=== PATIENT | male | born 1955 | race Two or more races ===

== ENCOUNTER 2024-09-04 13:07 | Inpatient (IN) | payer OTHER ==
[~2024-09-04] VITALS: Ht 175.3 cm; Wt 101.2 kg
[2024-09-04 13:27] VITALS: PULSE 75; RESP 18; O2SAT 96
--- NOTE | 2024-09-04 14:01 | ECG ---
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
--- NOTE | 2024-09-04 14:02 | ED.PDOC ---
SOB-HPI HPI Comments 69 year old male brought in by nursing staff presents to the ED with chief complaint of syncope. Patient reports that he had been visiting his in the hospital when he started to experience SOB with associated sweats and a general feeling of lightheadedness. Patient relays that the the next thing he remembered was being wheeled over to the ED in a wheelchair. Nursing staff state patient had been found on the floor by nursing staff and was put on O2 prior to being taken to the ED. Patient notes he had a recent CABG performed on 07/25/24. Patient reports that his symptoms have been relieved since being placed on the O2. Patient relays that he had a similar episode of syncope in [place] after having his blood drawn. Patient denies any chest pain, cough, fever, chills, dizziness, or headache. Chief Complaint: Syncope Time Seen by MD: 13:56 Primary Care Provider: UNKNOWN Reviewed notes: Nurses Notes, Medications, Allergies Information Source: Patient Mode of Arrival: Wheelchair Severity: Moderate Timing: Hours Duration: Since onset Context: At Rest PE Risk Factors: None History of: None Prehospital treatment: None Modifying Factors: Nothing Past Medical History PAST MEDICAL HISTORY: CAD, DM, HTN Surgical History: CABG Surgical History (Other): Left knee replacement Family History Family History: Reviewed,noncontributory to illness Social History Smoker: Non-Smoker Alcohol: Denies ETOH Use Drugs: Denies Drug Use Lives In: Home Constitutional: reports: sweats; denies: chills, diaphoresis, fatigue, fever, malaise, weakness, others EENTM: denies: blurred vision, double vision, ear bleeding, ear discharge, ear drainage, ear pain, ear ringing, eye pain, eye redness, hearing loss, mouth pain, mouth swelling, nasal discharge, nose bleeding, nose congestion, nose pa in, photophobia, tearing, throat pain, throat swelling, voice changes, others Respiratory: reports: shortness of breath; denies: cough, hemoptysis, orthopnea, SOB at rest, SOB with excertion, stridor, wheezing, others Cardiovascular: reports: syncope; denies: chest pain, dizzy spells, diaphoresis, Dyspnea on exertion, edema, irregular heart beat, left arm pain, lightheadedness, palpitations, PND, others Gastrointestinal: denies: abdomen distended, abdominal pain, blood streaked bowels, constipated, diarrhea, dysphagia, difficulty swallowing, hematemesis, melena, nausea, poor appetite, poor fluid intake, rectal bleeding, rectal pain, vomiting, others Genitourinary: denies: burning, dysuria, flank pain, frequency, hematuria, incontinence, penile discharge, penile sore, pain, testicle pain, testicle swelling, urgency, others Neurological: denies: dizziness, fainting, headache, left sided numbness, left sided weakness, numbness, paresthesia, pre-existing deficit, right sided numbness, right sided weakness, seizure, speech problems, tingling, tremors, weakness, others Musculoskeletal: denies: back pain, gout, joint pain, joint swelling, muscle pain, muscle stiffness, neck pain, others Integumetry: denies: bruises, change in color, change in hair/nails, dryness, laceration, lesions, lumps, rash, wounds, others Allergic/Immunocompromised: denies: Difficulty Healing, Frequent Infections, Hives, Itching, others Hematologic/Lymphatic: denies: anemia, blood clots, easy bleeding, easy bruising, swollen glands, others Endocrine: denies: excessive hunger, excessive sweating, excessive thirst, excessive urination, flushing, intolerance to cold, intolerance to heat, unexplained weight gain, unexplained weight loss, others Psychiatric: denies: anxiety, bipolar disorder, depression, hopeless, panic disorder, schizophrenia, sleepless, suicidal, others All Other Systems: Reviewed and Negative Physical Exam General Appearance: No Apparent Distress HEENT: PERRL/EOMI Neck: Full Range of Motion, Normal Inspection Respiratory: Lungs Clear, No Accessory Muscle Use, No Respiratory Distress, Normal Breath Sounds Cardiovascular: No Edema, No JVD, Regular Rate/Rhythm Breast Exam: Deferred Gastrointestinal: Non Tender, Soft Genitalia: Deferred Pelvic: Deferred Rectal: Deferred Extremities: Normal inspection, Normal range of motion, Non-tender, No pedal edema Neurologic: Alert (Oriented x4), Normal Affect, Normal Mood, Other (Moves all extremities. No gross focal deficit.) Cerebellar Function: NOT DONE Reflexes: NOT DONE Skin: Dry, Normal Color, Warm Lymphatic: NOT DONE EKG EKG : Comments Sinus rhythm, rate 75, HI slightly prolonged at 2:03 a.m., normal QRS interval, QTC prolonged at 5:30 a.m., incomplete right bundle-branch block and left anterior fascicular block, inferior and lateral T-wave inversion Was a procedure done? Was a procedure done?: No Differential Dx Differential Diagnosis: Dysrhythmia, Myocardial infarction, Panic Attack, Pulmonary Embolism, Other (Vasovagal syncope, CVA, TIA) X-Ray, Labs, Meds, VS Vital Signs Date Time Temp Pulse Resp B/P (MAP) Pulse Ox O2 Delivery O2 Flow Rate FiO2 09/04/24 16:00 78 15 146/93 (110) 97 09/04/24 14:00 79 15 121/79 (93) 97 09/04/24 13:32 75 09/04/24 13:27 75 18 96 Nasal Cannula* 2 28 09/04/24 13:22 97.8 76 15 161/98 (119) 95 97.8 09/04/24 13:07 97.9 108 16 140/87 (104) 96 Lab Test 09/04/24 16:15 09/04/24 14:48 09/04/24 13:12 Range/Units Troponin I High Sensitivity Pending 502 *H 532 *H </=54 ng/L White Blood Count 12.0 H 4.4-10.8 10^3/uL Red Blood Count 4.87 4.5-5.90 10^6/uL Hemoglobin 13.8 13.5-17.5 g/dL Hematocrit 42.2 41.0-53.0 % Mean Corpuscular Volume 86.5 80.0-100.0 fL Mean Corpuscular Hemoglobin 28.3 28.0-32.0 pg Mean Corpuscular Hemoglobin Concent 32.8 32.0-36.0 g/dL Red Cell Distribution Width 15.6 H 11.8-14.3 % Platelet Count 324 140-450 10^3/uL Mean Platelet Volume 9.8 6.9-10.8 fL Neutrophils (%) (Auto) 70.0 37.0-80.0 % Lymphocytes (%) (Auto) 17.0 10.0-50.0 % Monocytes (%) (Auto) 8.4 0.0-12.0 % Eosinophils (%) (Auto) 3.7 0.0-7.0 % Basophils (%) (Auto) 0.9 0.0-2.0 % Neutrophils # (Auto) 8.4 1.6-8.6 10 ^3/uL Lymphocytes # (Auto) 2.0 0.4-5.4 10 ^3/uL Monocytes # (Auto) 1.0 0-1.3 10 ^3/uL Eosinophils # (Auto) 0.4 0-0.8 10 ^3/uL Basophils # (Auto) 0.1 0-0.2 10 ^3/uL Nucleated Red Blood Cells 0.2 % Sodium Level 143 136-145 mmol/L Potassium Level 4.4 3.5-5.1 mmol/L Chloride Level 108 H 98-107 mmol/L Carbon Dioxide Level 25 20-31 mmol/L Anion Gap 10 5-15 Blood Urea Nitrogen 16 9-23 mg/dL Creatinine 0.97 0.700-1.30 mg/dL Glomerular Filtration Rate Calc 83 >90 mL/min BUN/Creatinine Ratio 16.5 10.0-20.0 Serum Glucose 173 H 74-106 mg/dL Calcium Level 10.0 8.7-10.4 mg/dL Total Bilirubin 0.6 0.2-1.0 mg/dL Aspartate Amino Transferase (AST) 26 13-40 U/L Alanine Aminotransferase (ALT) 25 7-40 U/L Alkaline Phosphatase 116 46-116 U/L B-Type Natriuretic Peptide 391.95 0-100 pg/mL Total Protein 6.3 5.7-8.2 g/dL Albumin 4.1 3.2-4.8 g/dL Current Medications Medications (Trade) Dose Ordered Sig/Raymundo Route Start Time Stop Time Status Last Admin Sodium Chloride 1,000 ml @ 1,000 mls/hr Q1H ONCE IV 09/04/24 14:00 09/04/24 14:59 DC 09/04/24 14:22 PROCEDURE(s): HWOCT - HEAD WITHOUT CONTRAST REASON: syncope ORDER NUMBER(s): [id number], ACCESSION NUMBER(s): [id number] EXAM: CT HEAD WITHOUT CONTRAST INDICATION: syncope TECHNIQUE: CT of the head without intravenous contrast. Radiation dose : 1. Head: CT Dose: CTDI volume is 58 mGy. Dose-length product is 1047 mGy*cm The dose indicators for CT are the volume computed tomography (CT) dose index (CTDIv 58 ol) and the dose length product ( 1047 DLP), and are measured in units of mGy and mGy-cm, respectively. These indicators are not patient dose, but values generated from the CT scanner acquisition factors. The report includes radiation exposure data for exposures received during this examination. COMPARISON: None FINDINGS: There is no evidence of acute intracranial hemorrhage, extra-axial collection, mass effect, midline shift, herniation or hydrocephalus. The ventricles, sulci and cisterns are age appropriate. The rhodes-white differentiation is intact. Patchy periventricular and subcortical white matter hypoattenuation is nonspecific but may be related to small vessel ischemic disease. The visualized paranasal sinuses and mastoid air cells are clear. The surrounding soft tissues and osseous structures are unremarkable. IMPRESSION: 1. Moderate diffuse cortical atrophy 2. No subdural hematoma 3. No intracranial hemorrhage. Radiation optimization: All CT scans at this facility use at least one of these dose optimization techniques: Automated exposure control mA and/or kV adjustment per patient size (includes targeted exams where dose is matched to clinical indication) or iterative reconstruction. EDURE(s): CXRP - CHEST PORTABLE REASON: syncope ORDER NUMBER(s): [id number], ACCESSION NUMBER(s): [id number] CHEST RADIOGRAPH Indication: syncope Technique: Single frontal view of the chest was obtained COMPARISON: None FINDINGS: Lines and Tubes: None Lungs: Congestion, [id number]. Pleura: No effusion. No pneumothorax. Cardiomediastinal contours: Cardiomegaly Bones: Unremarkable IMPRESSION: Congestion, [id number]. X-Ray, Labs, Meds, VS Comment 69-year-old male with a history of diabetes, hypertension, CAD presenting with syncope preceded by shortness of breath Initial vitals remarkable for heart rate 108 Exam unremarkable EKG sinus rhythm, prolonged intervals, right bundle branch block and left anterior fascicular block, inferior and lateral T inversion CT head moderate diffuse cortical atrophy Chest x-ray congestion, left greater than right Labs remarkable for WBC 12, BNP 391.95, serial troponins 532, 502, and for 31 Patient treated with the following in the ED: 1 L 0.9 normal saline IV bolus initially, then Aspirin 325 mg p.o. and Lasix 40 mg IV On re-evaluation, patient states he is not short of breath on nasal cannula oxygen and is not complaining of chest pain. Plan is to admit the patient for Cardiology evaluation. Time of 1ST Reevaluation: 14:56 Reevaluation 1ST: Unchanged Patient Education/Counseling: Diagnosis, Treatment Family Education/Counseling: No Family Present Departure 1 Departure Time of Disposition: 16:53 Impression: Primary Impression: Syncope Qualified Codes: R55 - Syncope and collapse Additional Impressions: Elevated troponin Acute exacerbation of chronic heart failure Disposition: ADMITTED INPATIENT Admit to: Tele Condition: Guarded Critical Care Note Critical Care Time?: No Stability Stability form required: No Heart Score Heart Score: Heart Score Response (Comments) Value History Moderate Suspicious [address]-Deviation 2 Age >65 2 Risk Factors 1 or 2 risk factors 1 Troponin >3 x's Normal limit 2 Total 8 I personally scribed for CHARLOTTE GALE MD ([email or web address]) on 09/04/24 at 14:02. Electronically submitted by Feng Dumont ([email or web address]). CHARLOTTE GALE MD Sep 04, 2024 14:02
[2024-09-04 14:21] LABS: Basophils # (auto) 0.1 10 ^3/uL (0-0.2); Basophils % (auto) 0.9 % (0.0-2.0); Eosinophils # (auto) 0.4 10 ^3/uL (0-0.8); Eosinophils % (auto) 3.7 % (0.0-7.0); Hematocrit 42.2 % (41.0-53.0); Hemoglobin 13.8 g/dL (13.5-17.5); Mean Corpuscular Hemoglobin 28.3 pg (28.0-32.0); Mean Corpuscular Hgb Conc. 32.8 g/dL (32.0-36.0); Mean Corpuscular Volume 86.5 fL (80.0-100.0); Monocytes % (auto) 8.4 % (0.0-12.0); Neutrophils # (auto) 8.4 10 ^3/uL (1.6-8.6); Nucleated Red Blood Cells % 0.2 %; Platelet Count (auto) 324 10^3/uL (140-450); Red Blood Cells 4.87 10^6/uL (4.5-5.90); Red Cell Distribution Width 15.6 % (11.8-14.3)
[2024-09-04] MEDS: SODIUM CHLORIDE 0.9% 1,000 ML IV ONE (14:22)
--- NOTE | 2024-09-04 14:28 | DVH ---
CHEST RADIOGRAPH Indication: syncope Technique: Single frontal view of the chest was obtained COMPARISON: None FINDINGS: Lines and Tubes: None Lungs: Congestion, [id number]-right. Pleura: No effusion. No pneumothorax. Cardiomediastinal contours: Cardiomegaly Bones: Unremarkable IMPRESSION: Congestion, [id number]-right.
--- NOTE | 2024-09-04 14:34 | DVH ---
EXAM: CT HEAD WITHOUT CONTRAST INDICATION: syncope TECHNIQUE: CT of the head without intravenous contrast. Radiation dose : 1. Head: CT Dose: CTDI volume is 58 mGy. Dose-length product is 1047 mGy*cm The dose indicators for CT are the volume computed tomography (CT) dose index (CTDIv 58 ol) and the d ose length product ( 1047 DLP), and are measured in units of mGy and mGy-cm, respectively. These balbir cators are not patient dose, but values generated from the CT scanner acquisition factors. The report includes radiation exposure data for exposures received during this examination. COMPARISON: None FINDINGS: There is no evidence of acute intracranial hemorrhage, extra-axial collection, mass effect, midline s hift, herniation or hydrocephalus. The ventricles, sulci and cisterns are age appropriate. The rhodes-white differentiation is intact. Patchy periventricular and subcortical white matter hypoattenuation is nonspecific but may be related to small vessel ischemic disease. The visualized paranasal sinuses and mastoid air cells are clear. The surrounding soft tissues and osseous structures are unremarkable. IMPRESSION: 1. Moderate diffuse cortical atrophy 2. No subdural hematoma 3. No intracranial hemorrhage. Radiation optimization: All CT scans at this facility use at least one of these dose optimization saray hniques: Automated exposure control mA and/or kV adjustment per patient size (includes targeted exams where dose is matched to clinical indication) or iterative reconstruction.
[2024-09-04 14:35] LABS: Alanine Aminotransferase 25 U/L (7-40); Albumin 4.1 g/dL (3.2-4.8); Anion Gap 10 (5-15); Aspartate Aminotransferase 26 U/L (13-40); BUN/Creatinine Ratio 16.5 (10.0-20.0); Bilirubin, Total 0.6 mg/dL (0.2-1.0); Blood Urea Nitrogen 16 mg/dL (9-23); Carbon Dioxide 25 mmol/L (20-31); Potassium 4.4 mmol/L (3.5-5.1); Sodium 143 mmol/L (136-145); Total Protein 6.3 g/dL (5.7-8.2)
[2024-09-04 14:37] LABS: Alkaline Phosphatase 116 U/L (46-116); Chloride 108 mmol/L (98-107); Glucose 173 mg/dL (74-106)
[2024-09-04] MEDS: ASPirin 325 MG TAB PO ONE (16:51)
[2024-09-04] MEDS: FUROSEMIDE 40 MG/4 ML VIAL IV ONE (18:07)
[2024-09-04 20:56] VITALS: PULSE 72; RESP 12; O2SAT 95
[2024-09-04 21:09] LABS: Urine Bacteria None Seen /hpf (None Seen); Urine WBC None Seen /hpf (0 - 3)
--- NOTE | 2024-09-04 21:11 | DVHHPRES ---
History of Present Illness Resident Creating Document: MADIHA GOODMAN RESIDENT History of Present Illness Patient is 69-year-old male with past medical history of hypertension, diabetes mellitus, coronary artery disease and recent history of CABG(one month ago) who came to the hospital with a chief complaint of syncopal episode. As per patient , he started having worsening shortness of breath, palpitation associated with feeling of lightheadedness associated with syncopal episode where he passed out for at least 2-3 minutes. And then he remembered being in the hospital for ev aluation. At the time of evaluation, patient denying any other symptoms including chest pain, lightheadedness, fever, chills, shortness of breath, palpitation, motor weakness, sensory deficits. No any other new complaints. Past Medical History Coronary artery disease, diabetes mellitus, coronary artery disease Past Surgical History Recent history of CABG on July 2024 Smoke: No ALCOHOL: none Lives: with Family Domestic Violence: Neg Review of Systems Constitutional: No: Fever, Chills, Sweats, Weakness, Malaise, Other Eyes: No: Pain, Vision change, Conjunctivae inflammation, Eyelid inflammation, Other, Redness ENT: No: Ear pain, Ear discharge, Nose pain, Nose discharge, Nose congestion, Mouth pain, Mouth swelling, Throat pain, Throat swelling, Other Respiratory: No: Cough, Dry, Shortness of breath, SOB with excertion, Wheezing, Hemoptysis, Pleuritic Pain, Sputum, Wheezing, Other Cardiovascular: No: Chest Pain, Palpitations, Orthopnea, Paroxysmal Noc. Dyspnea, Edema, Lt Headedness, Other Gastrointestinal: No: Nausea, Vomiting, Abdominal Pain, Diarrhea, Constipation, Melena, Hematochezia, Other Genitourinary: No Dysuria, No Frequency, No Incontinence, No Hematuria, No Retention, No Other Musculoskeletal: No: other, neck pain, shoulder pain, arm pain, back pain, hand pain, leg pain, foot pain Skin: No: Rash, Lesions, Jaundice, Bruising, Other Neurological: No: Weakness, Numbness, Incoordination, Change in speech, Confusion, Seizures, Other Allergies: Coded Allergies: NO KNOWN ALLERGIES (Unverified , 09/04/24) Exam Vital Signs Vital Signs Date Time Temp Pulse Resp B/P (MAP) Pulse Ox O2 Delivery O2 Flow Rate FiO2 09/04/24 20:56 72 12 95 Nasal Cannula* 2 28 09/04/24 19:48 98.4 147/79 (101) 98.4 General Appearance: Alert HEENT: PERRLA Respiratory: Normal air movement, Other (Left-sided lung crackles.) Cardiovascular: Normal S1, Normal S2 Abdominal: Normal bowel sounds, Soft Extremities: No cyanosis, No edema Skin: No rashes, No breakdown Neuro: Normal gait, Normal speech Psych/Mental Status: Mood NL Labs/Xrays Labs Test 09/04/24 21:02 09/04/24 16:15 09/04/24 13:12 Range/Units Troponin I High Sensitivity 431 *H </=54 ng/L White Blood Count 12.0 H 4.4-10.8 10^3/uL Red Blood Count 4.87 4.5-5.90 10^6/uL Hemoglobin 13.8 13.5-17.5 g/dL Hematocrit 42.2 41.0-53.0 % Mean Corpuscular Volume 86.5 80.0-100.0 fL Mean Corpuscular Hemoglobin 28.3 28.0-32.0 pg Mean Corpuscular Hemoglobin Concent 32.8 32.0-36.0 g/dL Red Cell Distribution Width 15.6 H 11.8-14.3 % Platelet Count 324 140-450 10^3/uL Mean Platelet Volume 9.8 6.9-10.8 fL Neutrophils (%) (Auto) 70.0 37.0-80.0 % Lymphocytes (%) (Auto) 17.0 10.0-50.0 % Monocytes (%) (Auto) 8.4 0.0-12.0 % Eosinophils (%) (Auto) 3.7 0.0-7.0 % Basophils (%) (Auto) 0.9 0.0-2.0 % Neutrophils # (Auto) 8.4 1.6-8.6 10 ^3/uL Lymphocytes # (Auto) 2.0 0.4-5.4 10 ^3/uL Monocytes # (Auto) 1.0 0-1.3 10 ^3/uL Eosinophils # (Auto) 0.4 0-0.8 10 ^3/uL Basophils # (Auto) 0.1 0-0.2 10 ^3/uL Nucleated Red Blood Cells 0.2 % Sodium Level 143 136-145 mmol/L Potassium Level 4.4 3.5-5.1 mmol/L Chloride Level 108 H 98-107 mmol/L Carbon Dioxide Level 25 20-31 mmol/L Anion Gap 10 5-15 Blood Urea Nitrogen 16 9-23 mg/dL Creatinine 0.97 0.700-1.30 mg/dL Glomerular Filtration Rate Calc 83 >90 mL/min BUN/Creatinine Ratio 16.5 10.0-20.0 Serum Glucose 173 H 74-106 mg/dL Calcium Level 10.0 8.7-10.4 mg/dL Total Bilirubin 0.6 0.2-1.0 mg/dL Aspartate Amino Transferase (AST) 26 13-40 U/L Alanine Aminotransferase (ALT) 25 7-40 U/L Alkaline Phosphatase 116 46-116 U/L B-Type Natriuretic Peptide 391.95 0-100 pg/mL Total Protein 6.3 5.7-8.2 g/dL Albumin 4.1 3.2-4.8 g/dL Assessment/Plan Assessment/Plan Acute on chronic systolic versus diastolic Heart Failure NSTEMI type 2 likely due to above Syncopal episode, rule out etiology including orthostatic hypotension, cardiogenic etiology, coronary artery stenosis, neurological etiology. Pneumonia can not be ruled out, Gram-positive versus Gram-negative. Diabetes mellitus type 2 Hypertension Status post CABG(July) Plan: Cardiovascular: -Aspirin 325 mg p.o. daily, atorvastatin 80 mg p.o. daily. -Furosemide (Lasix) 40 mg IV b.i.d. -Monitor magnesium and potassium levels -Monitor urine output -cardiology consultation Syncope Evaluation: -Carotid study negative for significant carotid stenosis -Pending echocardiogram and orthostasis evaluation -head CT: No acute intracranial abnormality -carotid Doppler: No evidence of hemodynamically significant stenosis bilateral carotid stenosis. Diabetes: -Insulin sliding scale Infection: -Given elevated white count, sputum production, and recent sick contacts, early pneumonia cannot be ruled out -Administer ceftriaxone and azithromycin Antihypertensive Management: -Hold antihypertensive medications due to hypotension after receiving lower dose of Coreg and lisinopril 10 mg -Continue monitoring blood pressure Goals of care discussed greater than 22 minutes, full code. Plan discussed with Dr. Avila. Plan discussed with: Patient, Other (RN) My Orders Orders - MADIHA GOODMAN RESIDENT Procedure Category Date Status Time Lisinopril Tablet PHA 09/04/24 Transmitted (Zestril Tablet) 21:15 Lisinopril Tablet PHA 09/05/24 Transmitted (Zestril Tablet) 10:00 Aspirin Tablet PHA 09/05/24 Transmitted 10:00 Furosemide Injection PHA 09/05/24 Transmitted (Lasix Injection) 06:00 Atorvastatin (Lipitor) PHA 09/04/24 Transmitted 21:15 Atorvastatin (Lipitor) PHA 09/04/24 Transmitted 22:00 Carvedilol Tablet PHA 09/04/24 Transmitted (Coreg Tablet) 22:00 Carotid Duplx W Color US 09/04/24 Transmitted DOP 21:01 Echo 2d Mode Cardiac US 09/04/24 Transmitted DOP 21:01 * Cardiology Consult CONS 09/04/24 Transmitted 21:01 Glucose Blood PHA 09/04/24 Transmitted (Accu-Chek Comfort 22:00 Bedtime Insulin Scale PHA 09/04/24 Transmitted 22:00 Moderate Insulin Ss PHA 09/05/24 Transmitted 07:00 Dextrose 50% Syringe PHA 09/04/24 Transmitted 21:15 Covid19 Antigen I[facility]ra LAB 09/04/24 Transmitted Rapid Influenza A&B LAB 09/04/24 Transmitted 21:01 Ceftriaxone Ivpb PHA 09/05/24 Transmitted Rocephin 09:00 Ceftriaxone Ivpb PHA 09/04/24 Transmitted Rocephin 21:15 Azithromycin 500mg/ PHA 09/05/24 Transmitted 250ml (Zithromax 50 10:00 Azithromycin 500mg/ PHA 09/04/24 Transmitted 250ml (Zithromax 50 21:15 Urinalysis LAB 09/04/24 Transmitted 21:01 Drug Screen LAB 09/04/24 Transmitted 21:01 Admit ADMIT 09/04/24 Transmitted 21:01 Nitroglycerin PHA 09/04/24 Verified Sublingual (Ntrostat 21:15 Morphine Sulfate PHA 09/04/24 Verified Injection 21:15 Oxygen By Nasal RT 09/04/24 Verified Cannula 21:01 Stat Ekg For Chest [facility] 09/04/24 Verified Pain 21:01 Notify Of Changes [facility] 09/04/24 Verified From Base 21:01 Pharmaceutical Analyst For [facility] 09/04/24 Verified 24 Hours 21:01 Emergency Dysrhythmia [facility] 09/04/24 Verified Protocol 21:01 Rhythm Strips Once [facility] 09/04/24 Verified Every Shift 21:01 Date of Service: Sep 04, 2024 Billing Provider: ALISSON AVILA MD Common Visit Codes: [id number] INP/OBS CARE (HIGH) Secondary Visit Codes: [id number] CARE PLAN 30 MINUTES MADIHA GOODMAN RESIDENT Sep 04, 2024 21:11 ALISSON AVILA MD Sep 05, 2024 17:17
[2024-09-04] MEDS ORDERED: MORPHINE SULFATE INJ 2 MG/ml SYRG IV PRN (21:15)
[2024-09-04] MEDS ORDERED: DEXTROSE (50%) 50ML SYRG IV PRN (21:15)
[2024-09-04] MEDS: AZITHROMYCIN 500MG/ 250ML 250 ML IV ONE (21:15)
[2024-09-04] MEDS ORDERED: NITROGLYCERIN 0.4 MG SL TAB SL PRN (21:15)
[2024-09-04 21:20] LABS: Urine Blood Negative /uL (Negative); Urine Clarity Clear (Clear); Urine Color Light-Yellow (Yellow); Urine Protein, UAD Negative (Negative); Urine Squamous Epithelial Cell FEW /hpf (<5); Urine Urobilinogen Normal (Negative); Urine pH 5.5 (5.0-9.0)
[2024-09-04] MEDS: cefTRIAXone 1GM/50ML D5W 50 ML IV ONE (21:34)
--- NOTE | 2024-09-04 21:57 | DVH ---
CAROTID DOPPLER ULTRASOUND HISTORY: syncope COMPARISON: None TECHNIQUE: Real time rhodes scale, color Doppler, and spectral duplex images are obtained through the c arotid and vertebral arteries. Findings: Peak systolic velocity right internal carotid artery is 82 cm/s and right common carotid artery is 84 cm/s. Ratio is 1.0. Antegrade flow noted in right vertebral artery. No significant atherosclerotic p laque noted within the right carotid arterial system. Peak systolic velocity left internal carotid artery is 93 cm/s and left common carotid artery is 74 c m/s. Ratio is 1.2. Antegrade flow noted in left vertebral artery. No significant atherosclerotic plaq ue noted within the left carotid arterial system. Impression: 1. No evidence of hemodynamically significant stenosis within the bilateral carotid arterial systems. 2. Antegrade flow within bilateral vertebral arteries. Stenosis ICA/CCA PSV ratio PSV 0-40% < 1.5 25-110 cm/s 40-59% < 1.8 > 120 cm/s 60-79% 1.8-3.7 > 130 cm/s 80-99% > 3.7 < 25 cm/s, > 250 cm/s
[2024-09-04] MEDS: ATORVASTATIN 20 MG TAB PO SCH (22:00)
[2024-09-04 22:05] LABS: Amphetamine Screen, Urine Neg (NEGATIVE); Barbiturate Scree,Urine Neg (NEGATIVE); Benzodiazephine Screen, Urine Neg (NEGATIVE); Cannabinoid Screen, Urine Neg (NEGATIVE); Cocaine Screen, Urine Neg (NEGATIVE); Opiate Scree,Urine Neg (NEGATIVE); Phencyclidine Screen, Urine Neg (NEGATIVE)
[2024-09-04] MEDS: ATORVASTATIN 20 MG TAB PO ONE (22:20)
[2024-09-04] MEDS: CARVEDILOL 3.125 MG TAB PO SCH (22:21)
[2024-09-04 22:25] LABS: COVID19 ANTIGEN SOFIA FIA NEGATIVE (NEGATIVE); Rapid Influenza A Negative (Negative); Rapid Influenza B Negative (Negative)
[2024-09-04] MEDS: ACCU-CHEK COMFORT CURVE STRIP VI SCH (22:30)
[2024-09-04] MEDS: LISINOPRIL 5 MG TAB PO ONE (22:34)
[2024-09-04] MEDS: InsuLIN REG 1unit/0.01ml Soln (100units/ml) SC SCH (22:41)
[2024-09-05] VITALS (8 sets, daily range): BP systolic 108–140; BP diastolic 60–85; PULSE 63–98; RESP 16–21; TEMP 97.5–98.6; O2SAT 88–99
[2024-09-05] MEDS: FUROSEMIDE 40 MG/4 ML VIAL IV SCH (06:00)
[2024-09-05] MEDS: InsuLIN REG 1unit/0.01ml Soln (100units/ml) SC SCH (06:39)
[2024-09-05] MEDS: cefTRIAXone 1GM/50ML D5W 50 ML IV SCH (08:53)
[2024-09-05] MEDS: ASPirin 81 mg TAB PO SCH (09:05)
[2024-09-05] MEDS: AZITHROMYCIN 500MG/ 250ML 250 ML IV SCH (10:00)
[2024-09-05] MEDS ORDERED: LISINOPRIL 5 MG TAB PO SCH (10:00)
--- NOTE | 2024-09-05 10:54 | DVHINCON2 ---
Date Seen: Sep 05, 2024 Reason for Consultation Help in the management of a patient with syncope History of Present Illness Patient is a 69-year-old gentleman known to have history significant for coronary artery disease status post recent CABG done in July of 2024, hypertension, hyperlipidemia, and diabetes mellitus type 2. He was brought to the emergency room yesterday after he sustained a syncopal spell. Patient recalls that he was sitting visiting his and and suddenly started feeling lightheaded and sweaty. He does not recall the events after that. It was reported that he was out only for a minute or 2. Patient denied having any other associated symptoms. He specifically denied having any preceding chest pain or chest tightness. No preceding shortness of breath. No palpitations. He does report that he does experience a syncopal episode every year or 2. He does report that after his recent CABG he was experiencing chest pain but this resolved after he was put on a medication by his environmental engineering assistant at [facility]. Since then he has not experienced any recurrent chest pain. He does do regular walking. No strenuous activity that he does. No recent problems with orthopnea or PNDs. No peripheral edema. No bleeding problems. He reports being compliant his medications. Past Medical History He reports having CABG 1 vessel done at [facility] July of 2024. He also reports having a clip done at the same time probably AtriClip. No records are available at this point. Diabetes mellitus type. Hypertension. Hyperlipidemia. Past Surgical History Recent CABG as above Family History: FH: cancer G8 MOTHER, Allergies: Coded Allergies: NO KNOWN ALLERGIES (Unverified , 09/04/24) Current Medications Current Medications Medications (Trade) Dose Ordered Sig/Raymundo Route PRN Reason Start Time Stop Time Status Last Admin Lisinopril (Zestril Tablet) 10 mg DAILY PO 09/05/24 10:00 09/05/24 05:16 DC Aspirin 81 mg DAILY PO 09/05/24 10:00 09/05/24 09:05 Furosemide (Lasix Injection) 40 mg BIDD IV 09/05/24 06:00 09/05/24 06:00 Atorvastatin Calcium (Lipitor) 80 mg HS PO 09/04/24 22:00 Carvedilol (Coreg Tablet) 6.25 mg Q12HR PO 09/04/24 22:00 09/05/24 05:16 DC 09/04/24 22:21 Diagnostic Test (Pha) (Accu-Chek Comfort Curve T) 1 strip ACHS 09/04/24 22:00 09/05/24 06:35 Insulin Human Regular (InsuLIN R) HS SC 09/04/24 22:00 09/04/24 22:41 Insulin Human Regular (InsuLIN R) AC SC 09/05/24 07:00 09/05/24 06:39 Dextrose 50 ml UD PRN IV Blood Sugar LESS THAN 60 09/04/24 21:15 Ceftriaxone Sodium 50 ml @ 100 mls/hr DAILY@09 IV 09/05/24 09:00 09/05/24 08:53 Azithromycin 250 ml @ 125 mls/hr DAILY IV 09/05/24 10:00 Nitroglycerin (Ntrostat Sublingual) 0.4 mg Q5MINP PRN SL FOR CHEST PAIN 09/04/24 21:15 Morphine Sulfate 2 mg Q30M PRN IV FOR CHEST PAIN 09/04/24 21:15 Review of Systems As above, otherwise negative. Vital Signs Vital Signs Date Time Temp Pulse Resp B/P (MAP) Pulse Ox O2 Delivery O2 Flow Rate FiO2 09/05/24 08:39 97.6 72 17 108/72 (84) 92 97.6 09/05/24 04:23 Nasal Cannula* 3 32 Physical Exam Patient is not in acute distress. Heart sounds are normal with no audible murmurs. There is no JVD. The lungs are clear bilateral. Abdomen is soft and nontender. Extremities are warm with no edema. Neuro was grossly intact. Psych appropriate mood and affect, alert and oriented x3. Labs/Diagnostic Data Vital Signs Date Time Temp Pulse Resp B/P (MAP) Pulse Ox O2 Delivery O2 Flow Rate FiO2 09/05/24 08:39 97.6 72 17 108/72 (84) 92 97.6 09/05/24 06:00 122/65 09/05/24 04:23 Nasal Cannula* 3 32 09/05/24 04:23 98.6 64 21 115/71 (86) 94 98.6 09/05/24 03:00 63 11 111/48 (69) 98 09/05/24 02:00 55 14 113/55 (74) 98 09/05/24 01:52 98.3 75 16 136/85 (102) 99 98.3 09/05/24 00:57 58 13 97/55 (69) 96 09/05/24 00:40 66 12 87/48 (61) 87 09/05/24 00:40 62 09/05/24 00:00 67 09/04/24 23:30 85 14 97/55 (69) 93 09/04/24 23:24 85 91/41 09/04/24 22:34 124/78 09/04/24 22:22 77 13 124/78 (93) 94 09/04/24 22:21 67 124/78 09/04/24 22:00 98.4 77 13 124/78 (93) 94 98.4 09/04/24 21:17 98.4 72 12 147/79 (101) 95 98.4 09/04/24 20:56 72 12 95 Nasal Cannula* 2 28 09/04/24 20:00 83 09/04/24 19:48 98.4 72 12 147/79 (101) 95 98.4 09/04/24 18:07 148/76 09/04/24 18:00 78 15 122/93 (103) 97 09/04/24 16:00 78 15 146/93 (110) 97 09/04/24 14:00 79 15 121/79 (93) 97 09/04/24 13:32 75 09/04/24 13:27 75 18 96 Nasal Cannula* 2 28 09/04/24 13:22 97.8 76 15 161/98 (119) 95 97.8 09/04/24 13:07 97.9 108 16 140/87 (104) 96 Lab Test 09/05/24 06:33 09/04/24 21:29 09/04/24 21:02 09/04/24 16:15 Range/Units POC Glucose 151 H 70-106 mg/dl Influenza Type A Antigen Negative Negative Influenza Type B Antigen Negative Negative SARS-CoV-2 Antigen (Rapid) Negative NEGATIVE Urine Color Light-yellow Yellow Urine Clarity Clear Clear Urine pH 5.5 5.0-9.0 Urine Specific [place] 1.010 1.001-1.035 Urine Protein Negative Negative Urine Ketones Negative Negative Urine Blood Negative Negative /uL Urine Nitrite Negative Negative Urine Bilirubin Negative Negative Urine Urobilinogen Normal Negative mg/dL Urine Leukocyte Esterase Negative Negative /uL Urine RBC <1 0 - 3 /hpf Urine WBC None seen 0 - 3 /hpf Urine Squamous Epithelial Cells Few <5 /hpf Urine Bacteria None seen None Seen /hpf Urine Glucose Normal Normal mg/dL Urine Opiates Screen Neg NEGATIVE Urine Fentanyl Screen Neg NEGATIVE Urine Barbiturates Screen Neg NEGATIVE Urine Phencyclidine Screen Neg NEGATIVE Urine Amphetamines Screen Neg NEGATIVE Urine Benzodiazepines Screen Neg NEGATIVE Urine Cocaine Screen Neg NEGATIVE Urine Cannabinoids Screen Neg NEGATIVE Troponin I High Sensitivity 431 *H </=54 ng/L Test 09/04/24 14:48 09/04/24 13:12 Range/Units Troponin I High Sensitivity 502 *H 532 *H </=54 ng/L White Blood Count 12.0 H 4.4-10.8 10^3/uL Red Blood Count 4.87 4.5-5.90 10^6/uL Hemoglobin 13.8 13.5-17.5 g/dL Hematocrit 42.2 41.0-53.0 % Mean Corpuscular Volume 86.5 80.0-100.0 fL Mean Corpuscular Hemoglobin 28.3 28.0-32.0 pg Mean Corpuscular Hemoglobin Concent 32.8 32.0-36.0 g/dL Red Cell Distribution Width 15.6 H 11.8-14.3 % Platelet Count 324 140-450 10^3/uL Mean Platelet Volume 9.8 6.9-10.8 fL Neutrophils (%) (Auto) 70.0 37.0-80.0 % Lymphocytes (%) (Auto) 17.0 10.0-50.0 % Monocytes (%) (Auto) 8.4 0.0-12.0 % Eosinophils (%) (Auto) 3.7 0.0-7.0 % Basophils (%) (Auto) 0.9 0.0-2.0 % Neutrophils # (Auto) 8.4 1.6-8.6 10 ^3/uL Lymphocytes # (Auto) 2.0 0.4-5.4 10 ^3/uL Monocytes # (Auto) 1.0 0-1.3 10 ^3/uL Eosinophils # (Auto) 0.4 0-0.8 10 ^3/uL Basophils # (Auto) 0.1 0-0.2 10 ^3/uL Nucleated Red Blood Cells 0.2 % Sodium Level 143 136-145 mmol/L Potassium Level 4.4 3.5-5.1 mmol/L Chloride Level 108 H 98-107 mmol/L Carbon Dioxide Level 25 20-31 mmol/L Anion Gap 10 5-15 Blood Urea Nitrogen 16 9-23 mg/dL Creatinine 0.97 0.700-1.30 mg/dL Glomerular Filtration Rate Calc 83 >90 mL/min BUN/Creatinine Ratio 16.5 10.0-20.0 Serum Glucose 173 H 74-106 mg/dL Calcium Level 10.0 8.7-10.4 mg/dL Total Bilirubin 0.6 0.2-1.0 mg/dL Aspartate Amino Transferase (AST) 26 13-40 U/L Alanine Aminotransferase (ALT) 25 7-40 U/L Alkaline Phosphatase 116 46-116 U/L B-Type Natriuretic Peptide 391.95 0-100 pg/mL Total Protein 6.3 5.7-8.2 g/dL Albumin 4.1 3.2-4.8 g/dL Current Medications Medications (Trade) Dose Ordered Sig/Raymundo Route Start Time Stop Time Status Last Admin Sodium Chloride 1,000 ml @ 1,000 mls/hr Q1H ONCE IV 09/04/24 14:00 09/04/24 14:59 DC 09/04/24 14:22 Aspirin 325 mg ONCE ONCE PO 09/04/24 16:45 09/04/24 16:46 DC 09/04/24 16:51 Furosemide (Lasix Injection) 40 mg ONCE ONCE IV 09/04/24 17:00 09/04/24 17:28 DC 09/04/24 18:07 Lisinopril (Zestril Tablet) 10 mg ONCE ONCE PO 09/04/24 21:15 09/04/24 21:16 DC 09/04/24 22:34 Aspirin 81 mg DAILY PO 09/05/24 10:00 09/05/24 09:05 Furosemide (Lasix Injection) 40 mg BIDD IV 09/05/24 06:00 09/05/24 06:00 Atorvastatin Calcium (Lipitor) 80 mg ONCE ONCE PO 09/04/24 21:15 09/04/24 21:16 DC 09/04/24 22:20 Carvedilol (Coreg Tablet) 6.25 mg Q12HR PO 09/04/24 22:00 09/05/24 05:16 DC 09/04/24 22:21 Diagnostic Test (Pha) (Accu-Chek Comfort Curve T) 1 strip ACHS 09/04/24 22:00 09/05/24 06:35 Insulin Human Regular (InsuLIN R) HS SC 09/04/24 22:00 09/04/24 22:41 Insulin Human Regular (InsuLIN R) AC SC 09/05/24 07:00 09/05/24 06:39 Ceftriaxone Sodium 50 ml @ 100 mls/hr DAILY@09 IV 09/05/24 09:00 09/05/24 08:53 Ceftriaxone Sodium 50 ml @ 100 mls/hr ONCE ONCE IV 09/04/24 21:15 09/04/24 21:44 DC 09/04/24 21:34 Azithromycin 250 ml @ 125 mls/hr ONCE ONCE IV 09/04/24 21:15 09/04/24 23:14 DC 09/04/24 21:15 Labs Test 09/05/24 06:33 09/04/24 21:29 09/04/24 21:02 09/04/24 16:15 Range/Units POC Glucose 151 H 70-106 mg/dl Influenza Type A Antigen Negative Negative Influenza Type B Antigen Negative Negative SARS-CoV-2 Antigen (Rapid) Negative NEGATIVE Urine Color Light-yellow Yellow Urine Clarity Clear Clear Urine pH 5.5 5.0-9.0 Urine Specific [place] 1.010 1.001-1.035 Urine Protein Negative Negative Urine Ketones Negative Negative Urine Blood Negative Negative /uL Urine Nitrite Negative Negative Urine Bilirubin Negative Negative Urine Urobilinogen Normal Negative mg/dL Urine Leukocyte Esterase Negative Negative /uL Urine RBC <1 0 - 3 /hpf Urine WBC None seen 0 - 3 /hpf Urine Squamous Epithelial Cells Few <5 /hpf Urine Bacteria None seen None Seen /hpf Urine Glucose Normal Normal mg/dL Urine Opiates Screen Neg NEGATIVE Urine Fentanyl Screen Neg NEGATIVE Urine Barbiturates Screen Neg NEGATIVE Urine Phencyclidine Screen Neg NEGATIVE Urine Amphetamines Screen Neg NEGATIVE Urine Benzodiazepines Screen Neg NEGATIVE Urine Cocaine Screen Neg NEGATIVE Urine Cannabinoids Screen Neg NEGATIVE Troponin I High Sensitivity 431 *H </=54 ng/L Test 09/04/24 13:12 Range/Units White Blood Count 12.0 H 4.4-10.8 10^3/uL Red Blood Count 4.87 4.5-5.90 10^6/uL Hemoglobin 13.8 13.5-17.5 g/dL Hematocrit 42.2 41.0-53.0 % Mean Corpuscular Volume 86.5 80.0-100.0 fL Mean Corpuscular Hemoglobin 28.3 28.0-32.0 pg Mean Corpuscular Hemoglobin Concent 32.8 32.0-36.0 g/dL Red Cell Distribution Width 15.6 H 11.8-14.3 % Platelet Count 324 140-450 10^3/uL Mean Platelet Volume 9.8 6.9-10.8 fL Neutrophils (%) (Auto) 70.0 37.0-80.0 % Lymphocytes (%) (Auto) 17.0 10.0-50.0 % Monocytes (%) (Auto) 8.4 0.0-12.0 % Eosinophils (%) (Auto) 3.7 0.0-7.0 % Basophils (%) (Auto) 0.9 0.0-2.0 % Neutrophils # (Auto) 8.4 1.6-8.6 10 ^3/uL Lymphocytes # (Auto) 2.0 0.4-5.4 10 ^3/uL Monocytes # (Auto) 1.0 0-1.3 10 ^3/uL Eosinophils # (Auto) 0.4 0-0.8 10 ^3/uL Basophils # (Auto) 0.1 0-0.2 10 ^3/uL Nucleated Red Blood Cells 0.2 % Sodium Level 143 136-145 mmol/L Potassium Level 4.4 3.5-5.1 mmol/L Chloride Level 108 H 98-107 mmol/L Carbon Dioxide Level 25 20-31 mmol/L Anion Gap 10 5-15 Blood Urea Nitrogen 16 9-23 mg/dL Creatinine 0.97 0.700-1.30 mg/dL Glomerular Filtration Rate Calc 83 >90 mL/min BUN/Creatinine Ratio 16.5 10.0-20.0 Serum Glucose 173 H 74-106 mg/dL Calcium Level 10.0 8.7-10.4 mg/dL Total Bilirubin 0.6 0.2-1.0 mg/dL Aspartate Amino Transferase (AST) 26 13-40 U/L Alanine Aminotransferase (ALT) 25 7-40 U/L Alkaline Phosphatase 116 46-116 U/L B-Type Natriuretic Peptide 391.95 0-100 pg/mL Total Protein 6.3 5.7-8.2 g/dL Albumin 4.1 3.2-4.8 g/dL Assessment 1. Syncope. Etiology is not clear at this point but could be possibly secondary to orthostatic hypotension based on the description. He also reports having recurrent history of syncopal spells over the years including during blood draws. However, his EKG on presentation does show significantly prolonged QTc interval of 530 milliseconds with significant diffuse repolarization changes. We do not have baseline EKG for him. No significant arrhythmia at this point that the monitor. Echo is pending. Electrolytes are within normal limits. We will continue to monitor. Please check orthostatic vital size. Avoid medications that would prolong QT interval. We need to get his records from [facility]. 2. Coronary artery disease status post CABG done July of 2024 at [place]. He reports having 1 vessel bypass with an AtriClip placement. We will get the records to review. No recent anginal symptoms. His troponin was elevated on presentation at 530 and has been trending down. Etiology of this is not clear at this point whether it is ACS versus supply demand mismatch. His EKG is showing significant repolarization changes as above. Further workup for coronary ischemia will depend on the findings on his echo and also review of his prior medical records. Continue aspirin and statins. Continue beta-blockers. 3. Acute heart failure exacerbation. No hypervolemic and examined this point. His chest x-ray on presentation reportedly pulmonary congestion. He is already being diuresed. Continue guideline directed optimal medical therapy. 4. Other comorbidities include history of hypertension, hyperlipidemia, diabetes mellitus type 2. Plan discussed with: Patient Date of Service: Sep 05, 2024 Billing Provider: MATEO SAUCEDO MD Cardiology Common Codes: [id number] INP/OBS CARE (High) MATEO SAUCEDO MD Sep 05, 2024 10:54
--- NOTE | 2024-09-05 14:00 | MEDREC ---
[facility] Intervention Section I [facility] Intervention: Review courses of therapy (GIVEN THE QTc > 500 AND PATIENT CAN TAKE MEDICATIONS BY MOUTH. PLEASE CONSIDER SWITCHING AZITHROMYCIN TO DOXYCYCLINE PO TO COVER FOR POSSIBLE PNEUMONIA) KIMMY MIRELES Sep 05, 2024 14:00
[2024-09-05] MEDS ORDERED: COLCPOW2 PO (16:59)
[2024-09-05] MEDS ORDERED: AMIO200T33 PO (16:59)
[2024-09-05] MEDS ORDERED: ATOR-47 PO (16:59)
[2024-09-05] MEDS ORDERED: CARV6.2551 PO (16:59)
[2024-09-05] MEDS ORDERED: ASPI-543 PO (16:59)
[2024-09-05] MEDS ORDERED: INSU100I52 IJ (17:02)
[2024-09-05] MEDS ORDERED: LISI10TA34 PO (17:02)
[2024-09-05] MEDS ORDERED: INSU100S6 SC (17:02)
--- NOTE | 2024-09-05 17:20 | DVHPN2 ---
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) Changes from previous H/P or p: No Changes Objective Vitals Vital Signs Date Time Temp Pulse Resp B/P (MAP) Pulse Ox O2 Delivery O2 Flow Rate FiO2 09/05/24 13:00 97.6 63 17 116/60 (78) 94 97.6 09/05/24 04:23 Nasal Cannula* 3 32 Intake/Output Intake and Output 09/05/24 07:00 Intake Total 1000 ml Balance 1000 ml Intake Oral 0 ml IV Total 1000 ml General Appearance: Alert, Oriented X3, Cooperative, No acute distress HEENT: Atraumatic Lungs: Clear to auscultation Cardiovascular: Regular rate Extremities: Other (TRACE EDEMA BLE) Medications Current Medications Medications Dose Ordered Sig/Raymundo Route Start Time Stop Time Status Last Admin Dose Admin Aspirin 81 mg DAILY PO 09/05/24 10:00 09/05/24 09:05 81 MG Furosemide 40 mg BIDD IV 09/05/24 06:00 09/05/24 06:00 40 MG Atorvastatin Calcium 80 mg HS PO 09/04/24 22:00 Diagnostic Test (Pha) 1 strip ACHS 09/04/24 22:00 09/05/24 06:35 1 STRIP Insulin Human Regular HS SC 09/04/24 22:00 09/04/24 22:41 2 UNITS Insulin Human Regular AC SC 09/05/24 07:00 09/05/24 06:39 2 UNITS Dextrose 50 ml UD PRN IV 09/04/24 21:15 Ceftriaxone Sodium 50 ml @ 100 mls/hr DAILY@09 IV 09/05/24 09:00 09/05/24 08:53 100 MLS/HR Azithromycin 250 ml @ 125 mls/hr DAILY IV 09/05/24 10:00 09/05/24 10:00 125 MLS/HR Nitroglycerin 0.4 mg Q5MINP PRN SL 09/04/24 21:15 Morphine Sulfate 2 mg Q30M PRN IV 09/04/24 21:15 Laboratory Results Laboratory Tests 09/04/24 13:12 Urinalysis Test 09/04/24 21:02 Urine Color Light-yellow (Yellow) Urine Clarity Clear (Clear) Urine pH 5.5 (5.0-9.0) Urine Specific [place] 1.010 (1.001-1.035) Urine Protein Negative (Negative) Urine Ketones Negative (Negative) Urine Blood Negative /uL (Negative) Urine Nitrite Negative (Negative) Urine Bilirubin Negative (Negative) Urine Urobilinogen Normal mg/dL (Negative) Urine Leukocyte Esterase Negative /uL (Negative) Urine RBC <1 /hpf (0 - 3) Urine WBC None seen /hpf (0 - 3) Urine Squamous Epithelial Cells Few /hpf (<5) Urine Bacteria None seen /hpf (None Seen) Urine Glucose Normal mg/dL (Normal) Assessment/Plan Assessment/Plan SYNCOPE NSTEMI HFrEF- ACUTE ON CHRONIC DM HTN CAD/CABG JUL 2024 A LLU PROLONG QT INTERVALL ?ARRHYTHMIA LEUKOCYTOSIS PLAN PER ORDERS. REPEAT LABS. CXR. CONTINUE PLAN OF CARE. PER CARDIO. Plan discussed with: Patient, Other (NURSING) My Orders Orders - NASRA KLEIN MD Procedure Category Date Status Time Regular Diet DIET 09/05/24 Transmitted Dinner Date of Service: Sep 05, 2024 Billing Provider: NASRA KLEIN MD Common Visit Codes: [id number] INP/OBS CARE(HIGH) NASRA KLEIN MD Sep 05, 2024 17:20
[2024-09-05] MEDS: AMIODARONE HCL 200 MG TAB PO SCH (21:54)
[2024-09-06] VITALS (7 sets, daily range): BP systolic 97–147; BP diastolic 56–85; PULSE 62–89; RESP 14–19; TEMP 97.8–98.9; O2SAT 93–98
--- NOTE | 2024-09-06 05:48 | DVH ---
CHEST RADIOGRAPH Indication: FU Technique: Single frontal view of the chest was obtained COMPARISON: XY CHEST PORTABLE on DOS: 09/04/24 FINDINGS: Lines and Tubes: Median sternotomy Lungs: Congestion Pleura: No effusion. No pneumothorax. Cardiomediastinal contours: Cardiomegaly Bones: Unremarkable IMPRESSION: No significant interval change.
[2024-09-06 06:30] LABS: Basophils # (auto) 0.1 10 ^3/uL (0-0.2); Basophils % (auto) 1.3 % (0.0-2.0); Eosinophils # (auto) 0.5 10 ^3/uL (0-0.8); Hematocrit 36.3 % (41.0-53.0); Hemoglobin 12.2 g/dL (13.5-17.5); Lymphocytes # (auto) 1.6 10 ^3/uL (0.4-5.4); Lymphocytes % (auto) 20.5 % (10.0-50.0); Mean Corpuscular Hemoglobin 28.8 pg (28.0-32.0); Mean Corpuscular Hgb Conc. 33.6 g/dL (32.0-36.0); Mean Corpuscular Volume 85.7 fL (80.0-100.0); Monocytes # (auto) 0.6 10 ^3/uL (0-1.3); Monocytes % (auto) 8.5 % (0.0-12.0); Neutrophils # (auto) 4.7 10 ^3/uL (1.6-8.6); Neutrophils % (auto) 62.7 % (37.0-80.0); Nucleated Red Blood Cells % 0.1 %; Platelet Count (auto) 270 10^3/uL (140-450); Red Blood Cells 4.23 10^6/uL (4.5-5.90); White Blood Cell 7.6 10^3/uL (4.4-10.8)
[2024-09-06 07:03] LABS: Alanine Aminotransferase 21 U/L (7-40); Albumin 3.6 g/dL (3.2-4.8); Alkaline Phosphatase 91 U/L (46-116); Anion Gap 6 (5-15); Blood Urea Nitrogen 16 mg/dL (9-23); Calcium 9.6 mg/dL (8.7-10.4); Carbon Dioxide 29 mmol/L (20-31); Potassium 4.1 mmol/L (3.5-5.1); Sodium 142 mmol/L (136-145)
[2024-09-06 07:04] LABS: Aspartate Aminotransferase 16 U/L (13-40); Chloride 107 mmol/L (98-107); Glucose 136 mg/dL (74-106); Total Protein 5.6 g/dL (5.7-8.2)
[2024-09-06 07:37] LABS: Bilirubin, Total 0.6 mg/dL (0.2-1.0)
--- NOTE | 2024-09-06 08:01 | DVHSR ---
APPROVED REPORT EXAM: Two-dimensional and M-mode echocardiogram with Doppler and color Doppler. Blood Pressure: 122/65 mmHg INDICATION Heart Failure Surgery/Intervention CABG: RISK FACTORS Height: 5'9", Weight: 210 DIMENSIONS LVDd4.8 (3.8-5.7cm)LA (2D)4.4 (1.9-4.0cm)Aortic Root3.3 (2.0-3.7cm) LVDs2.9 (2.5-4.0cm)LA (MM) (1.9-4.0cm)Aortic Cusp Exc1.8 (1.5-2.0cm) EF (%) 55.0 (55-70%)Rt. Atrium4.3 (1.9-4.0cm)Asc. Aorta3.3 cm IVSd1.7 (0.7-1.1cm)RV (D)4.8 (1.8-2.4cm) PWd1.5 (0.7-1.1cm) Mitral Valve MitralMitral Stenosis E wave0.38m/sMV Mean GR.mmHg A wave0.48m/sMV Peak GR.mmHg E/A ratio0.82D MVAcm2 DECEL [id number] 1/2 Timems Aortic Valve Aortic ValveAortic Stenosis V11.02m/Liban Mean GR.3mmHg V21.22m/Liban Peak GR.6mmHg LVOT Diameter2.1 (1.8-2.4cm)Doppler AVA2.89cm2 Pulmonic Valve V20.75m/s Tricuspid Valve TR Velocity2.20m/s [id number] LEFT VENTRICLE Normal left ventricular size. There is moderate concentric left ventricular hypertrophy most promine nt in the septum. Ejection fraction is normal and is estimated at 55% based on visual estimate. The re is no gross regional wall motion abnormalities. There is grade II diastolic dysfunction. RIGHT VENTRICLE Right ventricle is mildly dilated in size. Right ventricular systolic function is mildly decreased. ATRIA Left atrium is moderately dilated in size. Right atrium is mildly dilated in size. MITRAL VALVE Normal structure and function. There is mild mitral regurgitation. PULMONIC VALVE Likely normal. TRICUSPID VALVE Normal structure and function. There is mild tricuspid regurgitation. PA systolic pressure is estima jon at 30-35 mm Hg. AORTIC VALVE Trileaflet in morphology. Leaflets are mildly calcified. No significant stenosis or regurgitation. GREAT VESSELS The aortic root and proximal ascending aorta are of normal size. PERICARDIAL EFFUSION No pericardial effusion. IVC is dilated in size and collapses minimally with inspiration. Other Information Quality : Technically LimitedRhythm : Technically limited study due to patient position. Conclusion Normal left ventricular size and systolic function. Ejection fraction is estimated at 55%. Moderate left ventricular hypertrophy. Mildly dilated right ventricle with mildly decreased systolic function. Grade II diastolic dysfunction. Moderately dilated left atrial chamber size. Calcified aortic valve with no significant stenosis. PA systolic pressure is estimated at 30-35 mm Hg. No pericardial effusion.
--- NOTE | 2024-09-06 14:20 | DVHPN2 ---
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 from previous H/P or p: No Changes Objective Vitals Vital Signs Date Time Temp Pulse Resp B/P (MAP) Pulse Ox O2 Delivery O2 Flow Rate FiO2 09/06/24 09:00 98.0 71 16 134/64 (87) 95 98.0 09/06/24 07:50 Nasal Cannula* 2 28 Intake/Output Intake and Output 09/06/24 07:00 Intake Total 300 ml Output Total 1080 ml Balance -780 ml Intake Oral 0 ml IV Total 300 ml Output Urine Total 1080 ml General Appearance: Alert, Oriented X3, Cooperative, No acute distress HEENT: Atraumatic Lungs: Clear to auscultation Cardiovascular: Regular rate Extremities: Other (TRACE EDEMA BLE) Medications Current Medications Medications Dose Ordered Sig/Raymundo Route Start Time Stop Time Status Last Admin Dose Admin Aspirin 81 mg DAILY PO 09/05/24 10:00 09/06/24 10:21 81 MG Furosemide 40 mg BIDD IV 09/05/24 06:00 09/05/24 06:00 40 MG Atorvastatin Calcium 80 mg HS PO 09/04/24 22:00 09/05/24 21:54 80 MG Diagnostic Test (Pha) 1 strip ACHS 09/04/24 22:00 09/06/24 11:40 1 STRIP Insulin Human Regular HS SC 09/04/24 22:00 09/05/24 21:57 2 UNITS Insulin Human Regular AC SC 09/05/24 07:00 09/06/24 11:41 3 UNITS Dextrose 50 ml UD PRN IV 09/04/24 21:15 Ceftriaxone Sodium 50 ml @ 100 mls/hr DAILY@09 IV 09/05/24 09:00 09/06/24 10:21 100 MLS/HR Azithromycin 250 ml @ 125 mls/hr DAILY IV 09/05/24 10:00 09/06/24 11:40 125 MLS/HR Nitroglycerin 0.4 mg Q5MINP PRN SL 09/04/24 21:15 Morphine Sulfate 2 mg Q30M PRN IV 09/04/24 21:15 Amiodarone HCl 200 mg BID PO 09/05/24 22:00 09/06/24 10:21 200 MG Laboratory Results Laboratory Tests 09/06/24 06:05 Chemistry Test 09/06/24 06:05 Albumin 3.6 g/dL (3.2-4.8) Calcium Level 9.6 mg/dL (8.7-10.4) Total Protein 5.6 g/dL (5.7-8.2) L LFT Test 09/06/24 06:05 Alanine Aminotransferase (ALT) 21 U/L (7-40) Alkaline Phosphatase 91 U/L (46-116) Aspartate Amino Transferase (AST) 16 U/L (13-40) Total Bilirubin 0.6 mg/dL (0.2-1.0) Urinalysis Test 09/04/24 21:02 Urine Color Light-yellow (Yellow) Urine Clarity Clear (Clear) Urine pH 5.5 (5.0-9.0) Urine Specific [place] 1.010 (1.001-1.035) Urine Protein Negative (Negative) Urine Ketones Negative (Negative) Urine Blood Negative /uL (Negative) Urine Nitrite Negative (Negative) Urine Bilirubin Negative (Negative) Urine Urobilinogen Normal mg/dL (Negative) Urine Leukocyte Esterase Negative /uL (Negative) Urine RBC <1 /hpf (0 - 3) Urine WBC None seen /hpf (0 - 3) Urine Squamous Epithelial Cells Few /hpf (<5) Urine Bacteria None seen /hpf (None Seen) Urine Glucose Normal mg/dL (Normal) Assessment/Plan Assessment/Plan SYNCOPE NSTEMI HFrEF- ACUTE ON CHRONIC DM HTN CAD/CABG JUL 2024 A LLU PROLONG QT INTERVALL ?ARRHYTHMIA LEUKOCYTOSIS PLAN Amiodarone resume yesterday as part of patient's home medications. Further plan as per Cardiology Plan discussed with: Patient My Orders Orders - NASRA KLEIN MD Procedure Category Date Status Time Regular Diet DIET 09/05/24 Transmitted Dinner Chest Portable XY 09/06/24 Resulted 06:00 Amiodarone Tablet PHA 09/05/24 In Process (Cordarone Tablet) 22:00 Date of Service: Sep 06, 2024 Billing Provider: NASRA KLEIN MD Common Visit Codes: [id number] INP/OBS CARE(HIGH) NASRA KLEIN MD Sep 06, 2024 14:20
--- NOTE | 2024-09-06 16:47 | DVHPN2 ---
Consult Progress Note Date Seen: Sep 06, 2024 Subjective Review of Systems: CVS:Normal, RESPIRATORY:Normal, NEURO:Normal Other Systems: Denies any further dizziness Objective vital signs Vital Sign Date Time Temp Pulse Resp B/P (MAP) Pulse Ox O2 Delivery O2 Flow Rate FiO2 09/06/24 13:00 98.0 74 18 114/85 (95) 94 98.0 09/06/24 07:50 Nasal Cannula* 2 28 Total Intake and Output 09/05/24 09/05/24 09/06/24 15:00 23:00 07:00 Intake Total 50 ml 250 ml Output Total 690 ml 390 ml Balance 50 ml -440 ml -390 ml medications Current Medications Medications Dose Ordered Sig/Raymundo Route Start Time Stop Time Status Last Admin Dose Admin Aspirin 81 mg DAILY PO 09/05/24 10:00 09/06/24 10:21 81 MG Furosemide 40 mg BIDD IV 09/05/24 06:00 09/05/24 06:00 40 MG Atorvastatin Calcium 80 mg HS PO 09/04/24 22:00 09/05/24 21:54 80 MG Diagnostic Test (Pha) 1 strip ACHS 09/04/24 22:00 09/06/24 11:40 1 STRIP Insulin Human Regular HS SC 09/04/24 22:00 09/05/24 21:57 2 UNITS Insulin Human Regular AC SC 09/05/24 07:00 09/06/24 11:41 3 UNITS Dextrose 50 ml UD PRN IV 09/04/24 21:15 Ceftriaxone Sodium 50 ml @ 100 mls/hr DAILY@09 IV 09/05/24 09:00 09/06/24 10:21 100 MLS/HR Azithromycin 250 ml @ 125 mls/hr DAILY IV 09/05/24 10:00 09/06/24 11:40 125 MLS/HR Nitroglycerin 0.4 mg Q5MINP PRN SL 09/04/24 21:15 Morphine Sulfate 2 mg Q30M PRN IV 09/04/24 21:15 Amiodarone HCl 200 mg BID PO 09/05/24 22:00 09/06/24 10:21 200 MG Examination: LUNGS:Normal, CVS:Normal, NEURO:Normal laboratory and microbiology Laboratory Tests 09/06/24 06:05 Test 09/06/24 06:05 Range/Units Serum Glucose 136 H 74-106 mg/dL Problem List/Assessment/Plan Problem List/Assessment/Plan (Dr. Olivera) 1. Syncope. Etiology is not clear. Echocardiogram revealed EF 55% with grade 2 diastolic dysfunction. Orthostatic VS are deemed to be negative. A bilateral carotid duplex has no evidence of hemodynamically significant stenosis. EKG on presentation does show significantly prolonged QTc interval of 530 milliseconds with significant diffuse repolarization changes. No arrhythmias have been identifies at this point. Electrolytes are within normal limits. Recommendations are as follow: avoid medications that would prolong QT interval. Outpatient event monitor if deemed to be necessary. Follow-up with primary divorce mediator within 3-4 weeks. 2. Coronary artery disease status post CABG done July of 2024 at [facility]. He reports having 1 vessel bypass with an AtriClip placement. No recent anginal symptoms. His troponin was elevated on presentation at 530 and has been trending down. Likely NSTEMI Type II secondary to supply demand mismatch. His EKG is showing significant repolarization changes as above. Continue aspirin, statins, and beta-blockers. 3. Acute on chronic decompensated HFpEF. No hypervolemic and examined this point. His chest x-ray on presentation reportedly pulmonary congestion. Continue diuresis as well as guideline directed optimal medical therapy. 4. Unspecified cardiac arrhythmia. Takes amiodarone 200 mg BID. No DOAC therapy seen in meds. Amiodarone resumed by primary care team. 4. Likely NSTEMI Type II secondary to hypertensive urgency and acute CHF. There is no further cardiac workup indicated at this time. Please call if you need to re-consult. Thank you for allowing us to participate in this patient's care. Please call if you have any questions or concerns. This medical document was created using an electronic medical record system with voice recognition software and computerized dictation system. Although this document has been carefully reviewed, there might still be some phonetic and typographical errors. Occasional wrong-word or ``sound-alike substitutions may have occurred due to the inherent limitations of voice recognition software. These areas are purely typographical due to imperfections of the software programs and do not reflect any compromise in the patient's medical care. Please read the chart carefully and recognize, using context, where these substitutions have occurred. Plan discussed with: Patient, Other Date of Service: Sep 06, 2024 Billing Provider: LACI OLIVERA MD Cardiology Common Codes: 44555-[id number] HOSP CARE([facility] Sep 06, 2024 16:47
[2024-09-07] VITALS (7 sets, daily range): BP systolic 124–157; BP diastolic 67–90; PULSE 68–76; RESP 14–20; TEMP 98–98.9; O2SAT 94–96
--- NOTE | 2024-09-07 06:02 | DVH ---
CHEST RADIOGRAPH Indication: fu Technique: Single frontal view of the chest was obtained COMPARISON: XY CHEST PORTABLE on DOS: 09/06/24, XY CHEST PORTABLE on DOS: 09/04/24, XY CHEST PORTABLE on DOS: 09/06/24 FINDINGS: Lines and Tubes: Median sternotomy Lungs: Congestion Pleura: No effusion. No pneumothorax. Cardiomediastinal contours: Cardiomegaly Bones: Unremarkable IMPRESSION: No significant interval change.
--- NOTE | 2024-09-07 16:47 | DVHDS2 ---
Discharge Summary Date of Admission Sep 04, 2024 at 21:01 Date of Discharge: Sep 07, 2024 Admitting Diagnosis syncope Labs/Diagnostic Data: Laboratory Results Test 09/07/24 10:20 09/06/24 06:05 09/05/24 11:27 09/04/24 21:29 B-Type Natriuretic Peptide 92.79 pg/mL (0-100) White Blood Count 7.6 10^3/uL (4.4-10.8) Red Blood Count 4.23 10^6/uL (4.5-5.90) Hemoglobin 12.2 g/dL (13.5-17.5) Hematocrit 36.3 % (41.0-53.0) Mean Corpuscular Volume 85.7 fL (80.0-100.0) Mean Corpuscular Hemoglobin 28.8 pg (28.0-32.0) Mean Corpuscular Hemoglobin Concent 33.6 g/dL (32.0-36.0) Red Cell Distribution Width 15.0 % (11.8-14.3) Platelet Count 270 10^3/uL (140-450) Mean Platelet Volume 9.0 fL (6.9-10.8) Neutrophils (%) (Auto) 62.7 % (37.0-80.0) Lymphocytes (%) (Auto) 20.5 % (10.0-50.0) Monocytes (%) (Auto) 8.5 % (0.0-12.0) Eosinophils (%) (Auto) 7.0 % (0.0-7.0) Basophils (%) (Auto) 1.3 % (0.0-2.0) Neutrophils # (Auto) 4.7 10 ^3/uL (1.6-8.6) Lymphocytes # (Auto) 1.6 10 ^3/uL (0.4-5.4) Monocytes # (Auto) 0.6 10 ^3/uL (0-1.3) Eosinophils # (Auto) 0.5 10 ^3/uL (0-0.8) Basophils # (Auto) 0.1 10 ^3/uL (0-0.2) Nucleated Red Blood Cells 0.1 % Sodium Level 142 mmol/L (136-145) Potassium Level 4.1 mmol/L (3.5-5.1) Chloride Level 107 mmol/L (98-107) Carbon Dioxide Level 29 mmol/L (20-31) Anion Gap 6 (5-15) Blood Urea Nitrogen 16 mg/dL (9-23) Creatinine 1.14 mg/dL (0.700-1.30) Glomerular Filtration Rate Calc 69 mL/min (>90) BUN/Creatinine Ratio 14.0 (10.0-20.0) Serum Glucose 136 mg/dL (74-106) Calcium Level 9.6 mg/dL (8.7-10.4) Total Bilirubin 0.6 mg/dL (0.2-1.0) Aspartate Amino Transferase (AST) 16 U/L (13-40) Alanine Aminotransferase (ALT) 21 U/L (7-40) Alkaline Phosphatase 91 U/L (46-116) Total Protein 5.6 g/dL (5.7-8.2) Albumin 3.6 g/dL (3.2-4.8) POC Glucose 112 mg/dl (70-106) Influenza Type A Antigen Negative (Negative) Influenza Type B Antigen Negative (Negative) SARS-CoV-2 Antigen (Rapid) Negative (NEGATIVE) Test 09/04/24 21:02 09/04/24 16:15 Urine Color Light-yellow (Yellow) Urine Clarity Clear (Clear) Urine pH 5.5 (5.0-9.0) Urine Specific [place] 1.010 (1.001-1.035) Urine Protein Negative (Negative) Urine Ketones Negative (Negative) Urine Blood Negative /uL (Negative) Urine Nitrite Negative (Negative) Urine Bilirubin Negative (Negative) Urine Urobilinogen Normal mg/dL (Negative) Urine Leukocyte Esterase Negative /uL (Negative) Urine RBC <1 /hpf (0 - 3) Urine WBC None seen /hpf (0 - 3) Urine Squamous Epithelial Cells Few /hpf (<5) Urine Bacteria None seen /hpf (None Seen) Urine Glucose Normal mg/dL (Normal) Urine Opiates Screen Neg (NEGATIVE) Urine Fentanyl Screen Neg (NEGATIVE) Urine Barbiturates Screen Neg (NEGATIVE) Urine Phencyclidine Screen Neg (NEGATIVE) Urine Amphetamines Screen Neg (NEGATIVE) Urine Benzodiazepines Screen Neg (NEGATIVE) Urine Cocaine Screen Neg (NEGATIVE) Urine Cannabinoids Screen Neg (NEGATIVE) Troponin I High Sensitivity 431 ng/L (</=54) Other Laboratory Tests 09/06/24 06:05 Brief Hx & Hospital Course: 69-YEAR-OLD GENTLEMAN ADMITTED TO THE HOSPITAL FROM THE EMERGENCY ROOM BECAUSE OF SYNCOPAL EPISODE. 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 Troponin was elevated. EKG showed prolonged QT interval. No arrhythmias seen but it was suspected. Patient has been on amiodarone since he had heart surgery in July 24, 2024/a month and a week ago. Chest x-ray showed congestion. Patient remained stable and ready to be discharged home asymptomatic. Patient will be resuming his previous home medication including amiodarone. 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 Patient was counseled about treatment plan, medications, possible side effects, patientverbalized understanding. All questions were answered to the best of my ability. This discharge took greater then 30 minutes in planning, reviewing documentation, counseling the patient, and discussing with other team members." ASSESSMENT ASSESSMENT Assessment Date of Service: Sep 07, 2024 Billing Provider: NASRA KLEIN MD Common Visit Codes: 65895-IUF/OBS DISCH DAY >30min NASRA KLEIN MD Sep 07, 2024 16:47
--- NOTE | 2024-09-11 15:08 | ECG ---
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 Electronically Signed On 09-12-2024 9:39:10 PST by Leonid Tejeda Please click the below link to view image of tracing.
== END 2024-09-07 18:30 | disposition home or self-care (01) | DRG 280 ==
LOC: ER 13:07 → TELE 21:01 → TELE-WESTW 21:10
PROVIDERS: ADMIT Internal Medicine; ATTEND Internal Medicine
DX: I11.0 Hypertensive heart disease with heart failure (principal); I50.43 Acute on chronic combined systolic (congestive) and diastolic (congestive) heart failure; I21.A1 Myocardial infarction type 2; J15.69 Pneumonia due to other Gram-negative bacteria; J15.9 Unspecified bacterial pneumonia; Z20.822 Contact with and (suspected) exposure to COVID-19; I95.1 Orthostatic hypotension; I25.10 Atherosclerotic heart disease of native coronary artery without angina pectoris; E11.9 Type 2 diabetes mellitus without complications; Z96.652 Presence of left artificial knee joint; E78.5 Hyperlipidemia, unspecified; D72.829 Elevated white blood cell count, unspecified; I49.9 Cardiac arrhythmia, unspecified; Z95.1 Presence of aortocoronary bypass graft; Z80.9 Family history of malignant neoplasm, unspecified
CPT/HCPCS: 36415; 70450; 71045; 80053; 80307; 81001; 82962; 83880; 84484; 85025; 87426; 87804; 93005; 93306; 93886; 96374; G0378; J1815